=== PATIENT | male | born 1990 | race Caucasian/White ===

== ENCOUNTER 2023-10-11 06:16 | Day surgery (SDC) | payer MEDICAID ==
[~2023-10-11] VITALS: Ht 185.4 cm; Wt 157.4 kg
[~2023-10-11 06:16] MED LIST: AMLO1TAB21 PO; ATOR10TA52 PO; EREN140I SC; LISI-285 PO; NORT25CA PO; SPIR50TA5 PO; TOPI100T68 PO
[2023-10-11] MEDS ORDERED: BUPIVACAINE 0.5% P/F INJ 10 ML VIAL ONE (06:49)
[2023-10-11] MEDS ORDERED: LIDOCAINE HCL (LOCAL ANESTH.) 0.5 % 50ML MDV IJ ONE (06:49)
[2023-10-11] MEDS ORDERED: ceFAZolin 2 GM/D5W100ml 100 ML IV ONE (06:49)
[2023-10-11] MEDS ORDERED: PROPOFOL 10 MG/ML 20 ML IV ONE (07:04)
[2023-10-11] MEDS ORDERED: fentaNYL CITRATE 100 MCG/2 ML VL ONE (07:05)
[2023-10-11] MEDS ORDERED: ONDANSETRON HCL 4 MG/2 ML VIAL ONE (07:44)
[2023-10-11] MEDS ORDERED: DexAMETHasone SOD PHOS 10MG/1ML VIAL INJ ONE (07:44)
[2023-10-11] MEDS ORDERED: MEPERIDINE HCL (25 MG/ML) 1ML VIAL ONE (07:45)
[2023-10-11] MEDS ORDERED: ePHEDrine SULFATE 50 MG/ML AMP ONE (07:46)
[2023-10-11 08:10] VITALS: PULSE 104; RESP 14; TEMP 97.8; O2SAT 94
[2023-10-11] MEDS ORDERED: ONDANSETRON HCL 4 MG/2 ML VIAL IV PRN (08:30)
[2023-10-11] MEDS ORDERED: HYDROmorphone HCL 2 MG/ML VL/or syr IV PRN (08:30)
[2023-10-11] MEDS ORDERED: MEPERIDINE HCL (25 MG/ML) 1ML VIAL IV PRN (08:30)
[2023-10-11 08:53] VITALS: BP 108/70; PULSE 90; RESP 20; O2SAT 91
== END 2023-10-11 09:00 | disposition home or self-care (01) ==
LOC: SUR 06:16
PROVIDERS: ATTEND Orthopaedic Surgery
DX: G56.01 Carpal tunnel syndrome, right upper limb (principal)
CPT/HCPCS: 64721; J1100; J2175; J2405; J2704; J3010; J3490